=== PATIENT | male | born 1975 | race Caucasian/White ===

== ENCOUNTER 2018-06-22 00:23 | Inpatient (IN) ==
[2018-06-22] MEDS ORDERED: Bisacodyl 10 MG Supp RECTAL PRN (04:21)
[2018-06-22] MEDS ORDERED: HYDROmorphone PF Inj 2 MG/ML Vial IV.PUSH PRN (04:40)
--- NOTE | 2018-06-22 15:53 | P.HP ---
History of Present Illness Primary Care Physician: Daljit Krueger Chief Complaint: Intractable emesis and diarrhea History of Present Illness: 42-year-old male for past medical history of Crohn disease was transferred from [place] ED for evaluation of intractable emesis, nausea and diarrhea 48 hours duration. Although patient has a history of Crohn disease however states the current symptom that is suffering from likely due to food poisoning. He recalls eating a burger on Sunday, June 19, 2018. However his symptoms started on the next day June 20, 2018 with emesis, diarrhea described as loose stool without any visible blood. Patient also reports abdominal pain due to emesis. Denies any febrile episode. CT abdomen/ pelvic performed. - Diagnosis (1) Gastroenteritis, noninfectious (2) Crohn's colitis (3) Acute hypokalemia (4) Acute kidney injury (5) Acute dehydration Inpatient Certification: I certify that the inpatient services were ordered in accordance with Medicare regulations governing the order. This includes certification that hospital inpatient services are reasonable and necessary and in the case of services not specified as inpatient-only under 42 CFR 419.22(n), that they are appropriately provided as inpatient services in accordance to with the 2-midnight benchmark under 43 CFR 412.3(e) Estimated Total Length of Stay (Days): 3 Plans for Post Hospital Care: Home Review of Systems All other systems reviewed negative except as stated in HPI PMFSH - History History Provided By: Patient - Medical History Medical History: Medical History (Last Updated 06/22/18 @ 00:59 by Mara Rhodes) Crohns disease History of tracheoesophageal fistula Rheumatoid arthritis - Surgical History Surgical History: Surgical History (Last Updated 06/22/18 @ 01:12 by Mara Rhodes) History of repair of tracheoesophageal fistula - Family History Family History: Family History (Last Updated 06/22/18 @ 15:48 by Benito Palacios MD) Other Colon cancer - Tobacco History Second Hand Smoke Exposure: No Smoking Status: Never smoker - Alcohol History How Often Do You Have a Drink Containing Alcohol: Never - Substance Use History Substance History: No History of Abuse Medications and Allergies Active Medications: Active Medications Bisacodyl (Dulcolax Supp) 10 mg RECTAL DAILY PRN PRN Reason: SEVERE CONSITIPATION Hydromorphone HCl (Dilaudid Pf Inj) 1 mg IV.PUSH Q4H PRN PRN Reason: pain > 4 Sodium Chloride (Ns Inj) 1,000 mls @ 100 mls/hr IV.CONT .Q10H REJI Ondansetron HCl (Zofran Inj) 4 mg IV.PUSH Q6H PRN PRN Reason: NAUSEA OR VOMITING Sennosides (Senokot) 17.2 mg PO Q12H PRN PRN Reason: Moderate Constipation Allergies Allergy/AdvReac Type Severity Reaction Status Date / Time Sulfa (Sulfonamide Allergy Heartburn Verified 06/22/18 00:53 Antibiotics) Home Medications Medication Instructions Recorded Confirmed Type fentanyl 1 patch TRANSDERMAL Q72H 06/22/18 06/22/18 History hydromorphone 8 mg PO Q6H PRN 06/22/18 06/22/18 History ondansetron 4 mg PO BID PRN 06/22/18 06/22/18 History zolpidem 06/22/18 History Exam Vital signs: Vital Signs 06/22/18 08:30 06/22/18 09:30 06/22/18 12:00 Temperature 97.8 F 97.6 F Pulse Rate 81 88 73 Respiratory Rate 18 18 Blood Pressure 126/74 115/72 Pulse Oximetry 97 99 Narrative: GENERAL: NAD SKIN: Warm and dry. HEAD: Atraumatic. Normocephalic. EYES: Pupils equal and round. No scleral icterus. No injection or drainage. ENT: No nasal bleeding or discharge. Mucous membranes pink and moist. NECK: Trachea midline. No JVD. CARDIOVASCULAR: Regular rate and rhythm. RESPIRATORY: No accessory muscle use. Clear to auscultation. Breath sounds equal bilaterally. GASTROINTESTINAL: Abdomen soft, non-tender, nondistended. Hepatic and splenic margins not palpable. MUSCULOSKELETAL: Extremities without clubbing, cyanosis, or edema. No obvious deformities. NEUROLOGICAL: Awake and alert. No obvious cranial nerve deficits. Motor grossly within normal limits. Five out of 5 muscle strength in the arms and legs. Normal speech. PSYCHIATRIC: Appropriate mood and affect; insight and judgment normal. Caprini VTE Risk Assessment Caprini VTE Risk Assessment: No/Low Risk (score <= 1) Caprini Risk Assessment Model: Point Value = 1 Point Value = 2 Point Value = 3 Point Value = 5 Age 41-60 Minor surgery BMI > 25 kg/m2 Swollen legs Varicose veins or History of unexplained or recurrent spontaneous Oral contraceptives or hormone replacement Sepsis (< 1 month) Serious lung disease, including pneumonia (< 1 month) Abnormal pulmonary function Acute myocardial infarction Congestive heart failure (< 1 month) History of inflammatory bowel disease Medical patient at bed rest Age 61-74 Arthroscopic surgery Major open surgery (> 45 min) Laparoscopic surgery (> 45 min) Malignancy Confined to bed (> 72 hours) Immobilizing plaster cast Central venous access Age >= 75 History of VTE Family history of VTE Factor V Leiden Prothrombin [id number] Lupus anticoagulant Anticardiolipin antibodies Elevated serum homocysteine Heparin-induced thrombocytopenia Other congenital or acquired thrombophilia Stroke (< 1 month) Elective arthroplasty Hip, pelvis, or leg fracture Acute spinal cord injury (< 1 month) Prophylaxis Regimen: Total Risk Factor Score Risk Level Prophylaxis Regimen 0-1 Low Early ambulation 2 Moderate Order ONE of the following: *Sequential Compression Device (SCD) *Heparin 5000 units SQ BID 3-4 Higher Order ONE of the following medications: *Heparin 5000 units SQ TID *Enoxaparin/Lovenox 40 mg SQ daily (WT < 150 kg, CrCl > 30 mL/min) *Enoxaparin/Lovenox 30 mg SQ daily (WT < 150 kg, CrCl > 10-29 mL/min) *Enoxaparin/Lovenox 30 mg SQ BID (WT < 150 kg, CrCl > 30 mL/min) AND/OR *Sequential Compression Device (SCD) 5 or more Highest Order ONE of the following medications: *Heparin 5000 units SQ TID (Preferred with Epidurals) *Enoxaparin/Lovenox 40 mg SQ daily (WT < 150 kg, CrCl > 30 mL/min) *Enoxaparin/Lovenox 30 mg SQ daily (WT < 150 kg, CrCl > 10-29 mL/min) *Enoxaparin/Lovenox 30 mg SQ BID (WT < 150 kg, CrCl > 30 mL/min) AND *Sequential Compression Device (SCD) Assessment and Plan - Assessment (1) Gastroenteritis, noninfectious Code(s): K52.9 - Noninfective gastroenteritis and colitis, unspecified Status : Acute (2) Crohn's colitis Code(s): K50.10 - Crohn's disease of large intestine without complications Status: Acute (3) Acute hypokalemia Code(s): E87.6 - Hypokalemia Status: Acute (4) Acute kidney injury Code(s): N17.9 - Acute kidney failure, unspecified Status: Acute (5) Acute dehydration Code(s): E86.0 - Dehydration Status: Acute - Plan 42-year-old man with Gastroenteritis, noninfectious Crohn disease, exacerbation? CT abdomen noted and reviewed by me with finding of 1. Abnormal scan demonstrating an abnormal appearance to the terminal ileum with narrowing of the lumen and some induration of the soft tissues about the terminal ileum. There is also dilation of small bowel loops with air-fluid levels suggesting active Crohn's disease of the terminal ileum causing some degree of obstruction. Gastroenterology consultation pending Check stool for ova and parasite, C. difficile PCR IV fluid, clear liquid diet Hypokalemia Replace electrolytes and monitor Acute renal injury Prerenal, due to dehydration Continue with gentle IV fluid hydration Avoid all nephrotoxic drug
[2018-06-23 06:44] LABS: Red Blood Count 4.68 mil/mm3 (4.50-5.90); White Blood Count 4.9 th/mm3 (4.0-11.0)
[2018-06-23 06:45] LABS: Baso % (Auto) 0.2 % (0.0-2.0); Eos # (Auto) 0.1 th/mm3 (0.0-0.4); Hematocrit 29.9 % (39.0-51.0); Lymph # (Auto) 0.3 th/mm3 (1.0-4.8); Lymph % (Auto) 6.6 % (9.0-44.0); Mean Corpuscular Hemoglobin 19.4 pg (27.0-34.0); Mean Platelet Volume 9.1 fL (7.0-11.0); Mono # (Auto) 0.6 th/mm3 (0.0-0.9); Mono % (Auto) 12.3 % (0.0-8.0); Neut # (Auto) 3.9 th/mm3 (1.8-7.7); Neut % (Auto) 78.9 % (16.0-70.0); Platelet Count 233 th/mm3 (150-450); Red Cell Distribution Width 18.2 % (11.6-17.2)
[2018-06-23 06:50] LABS: Mean Corpuscular HGB Conc 30.2 % (32.0-36.0)
[2018-06-23 07:10] LABS: Alanine Aminotransferase 12 U/L (12-78); Albumin 2.3 g/dL (3.4-5.0); Alkaline Phosphatase 83 U/L (45-117); Anion Gap 10 meq/L (5-15); Aspartate Aminotransferase 8 U/L (15-37); Blood Urea Nitrogen 16 mg/dL (7-18); Calcium 7.7 mg/dL (8.5-10.1); Carbon Dioxide 25.1 meq/L (21.0-32.0); Chloride 107 meq/L (98-107); Glomerular Filtration Rate 83 mL/min (>89); Glucose,Random 84 mg/dL (74-106); Sodium 142 meq/L (136-145); Total Protein 6.7 g/dL (6.4-8.2)
[2018-06-23 07:24] LABS: Potassium 2.8 meq/L (3.5-5.1)
[2018-06-23] MEDS: Sod Chloride 0.9% Inj 1,000 ML IV.CONT SCH ×4 (09:50→12:14)
--- NOTE | 2018-06-23 11:07 | P.PN ---
Subjective Interval history: Follow-up gastroenteritis/Crohn disease flareup? June 23, 2018-patient seen and examined, reported improvement of diarrheal episode as well as emesis since admission. Tolerated clear liquids yesterday and requesting now his diet to be advanced. Physical Exam Vital signs: Vital Signs 06/22/18 12:00 06/22/18 16:00 06/22/18 19:45 Temperature 97.6 F 98.1 F 98.7 F Pulse Rate 73 82 85 Respiratory Rate 18 18 18 Blood Pressure 115/72 121/74 140/88 Pulse Oximetry 99 97 98 06/23/18 00:15 06/23/18 08:00 Temperature 98.6 F 97.8 F Pulse Rate 77 77 Respiratory Rate 18 Blood Pressure 100/55 L 117/74 Pulse Oximetry 97 Intake & Output 06/22/18 06/23/18 06/23/18 18:59 06:59 18:59 Intake Total 480 / 480 360 / 360 Balance 480 / 480 360 / 360 Weight 52.3 kg 52.3 kg Intake: Oral 480 / 480 360 / 360 Other: # Voids 4 2 Date of Last Bowel Movement 06/22/18 # Bowel Movements 0 1 Weight On Admission 52.3 kg Narrative: GENERAL: NAD SKIN: Warm and dry. HEAD: Normocephalic. EYES: No scleral icterus. No injection or drainage. NECK: Supple, trachea midline. No JVD or lymphadenopathy. CARDIOVASCULAR: Regular rate and rhythm without murmurs, gallops, or rubs. RESPIRATORY: Breath sounds equal bilaterally. No accessory muscle use. GASTROINTESTINAL: Abdomen soft, non-tender, nondistended. MUSCULOSKELETAL: No cyanosis, or edema. BACK: Nontender without obvious deformity. No CVA tenderness. Results - Labs CBC & Chem 7: 06/23/18 05:37 06/23/18 05:37 Laboratory Results - last 24 hr 06/23/18 06/23/18 06/23/18 01:41 05:37 05:37 WBC 4.9 RBC 4.68 Hgb 9.0 L D Hct 29.9 L MCV 64.0 L D MCH 19.4 L MCHC 30.2 L RDW 18.2 H Plt Count 233 D MPV 9.1 Neut % (Auto) 78.9 H Lymph % (Auto) 6.6 L [place] % (Auto) 12.3 H Eos % (Auto) 2.0 Baso % (Auto) 0.2 Neut # (Auto) 3.9 Lymph # (Auto) 0.3 L [place] # (Auto) 0.6 Eos # (Auto) 0.1 Baso # (Auto) 0.0 WBC Differential . Differential Comment Auto diff final Sodium 142 Potassium 2.8 L* Chloride 107 Carbon Dioxide 25.1 Anion Gap 10 BUN 16 Creatinine 0.99 Estimated GFR 83 L Random Glucose 84 Calcium 7.7 L D Total Bilirubin 0.3 AST 8 L ALT 12 Alkaline Phosphatase 83 Total Protein 6.7 D Albumin 2.[address] C. diff Tox Epid 027 Negative C. difficile Tox (PCR) Negative - Procedures None Assessment and Plan - Assessment (1) Gastroenteritis, noninfectious Code(s): K52.9 - Noninfective gastroenteritis and colitis, unspecified Status : Acute (2) Crohn's colitis Code(s): K50.10 - Crohn's disease of large intestine without complications Status: Inactive (3) Acute hypokalemia Code(s): E87.6 - Hypokalemia Status: Inactive (4) Acute kidney injury Code(s): N17.9 - Acute kidney failure, unspecified Status: Inactive (5) Acute dehydration Code(s): E86.0 - Dehydration Status: Inactive - Plan 42-year-old man with Gastroenteritis, noninfectious-improving Crohn disease, exacerbation? CT abdomen noted and reviewed by me with finding of 1. Abnormal scan demonstrating an abnormal appearance to the terminal ileum with narrowing of the lumen and some induration of the soft tissues about the terminal ileum. There is also dilation of small bowel loops with air-fluid levels suggesting active Crohn's disease of the terminal ileum causing some degree of obstruction. Patient was advised to follow outpatient with gastroenterology Resume patient medication for Crohn disease stool for ova and parasite, C. difficile PCR all negative IV fluid, to full liquid diet Hypokalemia Replace electrolytes and monitor Acute renal injury-resolved Prerenal, due to dehydration Continue with gentle IV fluid hydration Avoid all nephrotoxic drug Discharge patient to home Condition on discharge: Improved Regular Diet as tolerated Ad Susannah activity Rx written: see EMR Follow-up with primary care physician in 1 week
== END 2018-06-23 17:46 | disposition home or self-care (01) ==
LOC: PHEDDLT 00:23 → N06 08:30
PROVIDERS: ADMIT Hospitalist; ATTEND Hospitalist